=== PATIENT | male | born 1955 | race Caucasian/White ===

== ENCOUNTER 2021-04-18 20:33 | Emergency (ER) | payer MEDICARE, MEDICAID, SELFPAY ==
--- NOTE | ~2021-04-18 | XR_ITS ---
EXAMINATION: XR BILATERAL SHOULDERS: 3 VIEWS EACH CLINICAL INFORMATION: Pain. Evaluate for fracture. COMPARISON: None XR/XR shoulder RT min 2V FINDINGS/IMPRESSION: Right shoulder: No acute fracture or dislocation. Heterotopic ossification present in the expected location of the coracoclavicular ligaments likely related to prior coracoclavicular ligamentous injury. There is also heterotopic ossification anteroinferior and slightly medial to the tip of the acromion, in the expected location of the coracoacromial ligament. Marginal osteophytes present along the acromioclavicular and glenohumeral joints. Heterotopic ossification present along the lateral acromion at the deltoid origin. Degenerative subchondral cyst present within the superior humeral head. Left shoulder: No acute fracture or dislocation. Moderate acromioclavicular marginal osteophytes. Small acromioclavicular marginal osteophytes. Minimal calcific rotator cuff tendinopathy. Soft tissues otherwise unremarkable.
--- NOTE | ~2021-04-18 | XR_ITS ---
EXAMINATION: XR BILATERAL SHOULDERS: 3 VIEWS EACH CLINICAL INFORMATION: Pain. Evaluate for fracture. COMPARISON: None XR/XR shoulder LT min 2V FINDINGS/IMPRESSION: Right shoulder: No acute fracture or dislocation. Heterotopic ossification present in the expected location of the coracoclavicular ligaments likely related to prior coracoclavicular ligamentous injury. There is also heterotopic ossification anteroinferior and slightly medial to the tip of the acromion, in the expected location of the coracoacromial ligament. Marginal osteophytes present along the acromioclavicular and glenohumeral joints. Heterotopic ossification present along the lateral acromion at the deltoid origin. Degenerative subchondral cyst present within the superior humeral head. Left shoulder: No acute fracture or dislocation. Moderate acromioclavicular marginal osteophytes. Small acromioclavicular marginal osteophytes. Minimal calcific rotator cuff tendinopathy. Soft tissues otherwise unremarkable.
--- NOTE | ~2021-04-18 | CT_ITS ---
EXAMINATION: CT HEAD WITHOUT CONTRAST CLINICAL INFORMATION: Fall. COMPARISON: None TECHNIQUE: Contiguous axial imaging was performed from the skull base to vertex without intravenous administration of contrast. Coronal and sagittal reformatted images are performed at CT scanner This CT examination was performed using dose optimization techniques as appropriate, variously including the following: *Automated exposure control *Adjustment of mA and/or kV according to patient size (this includes techniques or standardized protocols for targeted exams where dose is matched to indication/reason for exam; i.e. extremities or head) *Use of iterative reconstruction technique DLP: 838 mGy-cm FINDINGS: There is no evidence of acute intracranial hemorrhage or territorial infarction. No abnormal mass effect or midline shift is seen. Collier to white matter differentiation is well preserved. No extra-axial fluid collections are identified. There is generalized global volume loss. There is moderate prominence of the ventricles and the sulci . There is mild hypodensity of the periventricular white matter due to chronic small vessel ischemic disease. There are vascular calcifications of the internal carotid arteries bilaterally. The osseous structures and soft tissues are normal. The mastoid air cells and visualized portions of the paranasal sinuses are well aerated. CT/CT head/brain wo con IMPRESSION: No acute intracranial pathology.
[2021-04-18 20:46] VITALS: BP 137/85; PULSE 83; O2SAT 97
[2021-04-18 20:47] VITALS: BMI 26.4
[2021-04-18 21:07] VITALS: BP 142/88; PULSE 75; RESP 16; TEMP 36.4; O2SAT 95
--- NOTE | 2021-04-18 23:08 | ED.FALL ---
HPI - Fall General Chief Complaint: Fall Stated Complaint: FALL AND ETOH Time Seen by Provider: 04/18/21 22:57 Source: patient Mode of arrival: EMS Limitations: no limitations History of Present Illness HPI Narrative: 65-year-old male who presents emergency department for evaluation of trip and fall with injury to his head, right hand and left shoulder. Patient states that he was walking home and he stubbed his toe causing and trip. He fell forward and struck his head. He denied any loss of consciousness. He states that he also struck his left shoulder and right hand on the ground. He is currently complaining pain in his left shoulder, the pain is a constant, sharp pain which was worse with movement, the pain is moderate in intensity. The patient denied headache, neck pain, nausea, vomiting, numbness or weakness. He does have an abrasion to the palmar aspect of the right and denies any and pain. The patient states that he did drink alcohol early in the day. He believes that his last tetanus shot was given more than 5 years prior. Related Data Allergies Allergy/AdvReac Type Severity Reaction Status Date / Time No Known Allergies Allergy Verified 04/18/21 23:07 Review of Systems Review of Systems: Yes all other systems are reviewed and are negative [facility] Past Medical History [facility] Narrative: Past medical history: None. Past surgical history: None. Source history: He denies tobacco use. He occasionally drinks alcohol. He states that he was drinking alcohol earlier the day. He denies drug use. Social History Social History Advance Directives: No Advance Directives Information Provided: No Physical Exam Vital Signs: Vital Signs: Last Vital Signs Temp 97.5 F 04/18/21 21:07 Pulse 74 04/19/21 00:26 Resp 16 04/19/21 00:26 BP 138/81 04/19/21 00:26 Pulse Ox 98 04/19/21 00:26 Body Mass Index 26.4 Const: General: cooperative and no acute distress Orientation/consciousness: oriented to person and oriented to place Limitations: no limitations HENMT: Head: Yes normal to inspection, Yes normocephalic and Yes abrasion (Left forehead, no hematoma, no tenderness) Ears: external ears normal General nose exam: Normal external nose present Face and sinus: Yes other (Abrasion to left zygomatic arch, no tenderness) Mouth: Normal oral and palatal mucosa present Throat: Yes posterior oropharynx normal Eyes: General: appearance normal, both eyes and all related structures Pupils: Equal, round and reactive pupils present Neck: Neck: Yes normal visual inspection, Yes no lymphadenopathy, Yes trachea midline and Yes supple Chest: Chest palpation & inspection: normal inspection of the chest and normal palpation of entire chest wall Resp: Effort & Inspection: normal respiratory effort and able to speak in complete sentences Auscultation: clear to auscultation bilaterally Cardio: Rate: regular rate Rhythm: regular rhythm Heart sounds: S1 normal heart sound present, S2 normal heart sound present and no murmurs GI: Inspection: Yes normal to inspection Palpation (GI): Soft to palpation, nontender and no guarding Auscultation: normal bowel sounds : General: Yes no CVA tenderness Back/Spine/Pelvis: Back: no CVA tenderness Skin: General skin exam: no rashes or lesions noted Neuro: General: oriented to person and oriented to place Cranial nerves: Yes CN's II-XII intact bilaterally and Yes Equal, round and reactive pupils present Cognition (Neuro): normal cognition Motor exam (neuro): 5/5 motor strength present throughout Extrem: Other: Tenderness with palpation over the proximal left humerus, pain with passive and active range of motion, neurovascularly intact. Full skin thickness abrasion to right palm over the thenar eminence, no tenderness with palpation of the hand, full range of motion of the fingers, extremities neurovascular intact. Psych: Appearance: grossly normal Speech and movement: Normal speech and movement present Affect: normal affect Attitude: cooperative Thought process: Normal thought process present Thought content: Normal thought content present Course Course Course Narrative: 65-year-old male who presents emergency department for evaluation of injuries from a mechanical fall while he was walking home. Patient did hit his head but had no loss of consciousness, he does have an abrasion to his left forehead with no hematoma or tenderness. Patient has no neck tenderness or neck pain. He is complaining of pain in his left shoulder and does have tenderness with palpation of the proximal humerus. I ordered a CT scan of the head to rule out fracture, bleed in x-ray to the left and right shoulder pain. Patient's abrasions were cleaned and dressed with bacitracin. Patient was given a Tdap immunization. 0046: The patient's CT scan of the brain revealed no skull fracture or bleeding. X-rays of the shoulders bilaterally revealed no acute fractures. The patient was given verbal and printed instructions prior to discharge. The patient was advised to follow-up with her PCP in 2 days and to return to the emergency department if her symptoms get worse or if she develops any new symptoms that are concerning to her. Discharge Plan Discharge Clinical Impression: Fall, Head injury, Contusion of left shoulder, Contusion of right shoulder, Abrasion hand, Abrasion of forehead Patient Disposition: Home, Self-Care Instructions: Head Injury (ED), Contusion in Adults (ED), Abrasion (ED) Additional Instructions: The CT scan of your head revealed no skull fracture/broken bones or bleeding in the brain. The x-rays of your shoulders revealed no fractures/broken bones Apply bacitracin twice a day to the abrasion on your left forehead and right hand. Take ibuprofen 200 mg pills, 3 pills every 6 hours as needed for pain. Take Tylenol (acetaminophen) 500 mg pills, 2 pills every 4 to 6 hours as needed for pain. Follow-up with your doctor in 2 days. Please return to the emergency department if your symptoms get worse or if you develop any symptoms that are concerning to you. Please read the discharge instructions on abrasions, contusions in adults and head injury
[2021-04-19] MEDS: Diphth,Pertus(ACell),Tet Adult 0.5 ML SYRINGE IM (00:18)
[2021-04-19] MEDS: Bacitracin Oint 14 GM TUBE 1 APPL TOPICAL (00:19)
--- NOTE | 2021-04-19 00:25 | PC.NURSE ---
Medicated per NOV. Wounds cleaned, ABX ointment applied, wounds dressed. Pt resting in POC. VSS.
[2021-04-19 00:26] VITALS: BP 138/81; PULSE 74; RESP 16; O2SAT 98
== END 2021-04-19 01:01 | disposition home or self-care (01) ==
PROVIDERS: Emergency Provider Emergency Medicine Emergency Medical Services
DX: S09.90XA Unspecified injury of head, initial encounter (principal); S40.012A Contusion of left shoulder, initial encounter; S40.011A Contusion of right shoulder, initial encounter; S60.511A Abrasion of right hand, initial encounter; S00.81XA Abrasion of other part of head, initial encounter; W01.198A Fall on same level from slipping, tripping and stumbling with subsequent striking against other object, initial encounter; Y93.01 Activity, walking, marching and hiking; Y92.480 Sidewalk as the place of occurrence of the external cause; Y99.9 Unspecified external cause status
CPT/HCPCS: 70450; 73030; 90471; 90715; 99284

== ENCOUNTER 2021-06-14 18:54 | Emergency (ER) | payer OTHER, MEDICARE, MEDICAID, SELFPAY ==
[2021-06-14] VITALS (8 sets, daily range): BP systolic 98–196; BP diastolic 61–113; PULSE 65–77; RESP 14–19; TEMP 36.4; O2SAT 94–100; BMI 33.9
--- NOTE | ~2021-06-14 | CT_ITS ---
EXAMINATION: CT HEAD WITHOUT CONTRAST CLINICAL INFORMATION: Status post fall. COMPARISON: 04/18/2021 TECHNIQUE: Contiguous axial imaging was performed from the skull base to vertex without intravenous administration of contrast. This CT examination was performed using dose optimization techniques as appropriate, variously including the following: *Automated exposure control *Adjustment of mA and/or kV according to patient size (this includes techniques or standardized protocols for targeted exams where dose is matched to indication/reason for exam; i.e. extremities or head) *Use of iterative reconstruction technique DLP: 927 mGy-cm FINDINGS: This is a complex markedly abnormal study. There is a mildly displaced nondepressed frontal bone fracture that extends from the right superolateral orbital frontal bone superiorly into the left to involve the left parietal bone. There is overlying left scalp soft tissue swelling. There is extensive subarachnoid hemorrhage seen throughout the right hemisphere with involvement left frontal involvement as well. In addition, there is extensive high density extra-axial hemorrhage. There is a right holohemispheric extra-axial hemorrhage measuring up to 7 mm in width on coronal images. This has mixed density overlying the right temporal and parietal cortices suggesting blood in varying degrees of clotting. There is extension to involve the anterior and posterior falx to the right of midline as well as along the right tentorium, up to 8mm in width. There is extension across the midline to overlie the left frontal lobe. Small focus of intraventricular subependymal hemorrhage seen adjacent the left caudate image 51/92. Similarly, there may be intraventricular hemorrhage posteriorly in the occipital horn of the left lateral ventricle. There is right to left midline shift, approximately 6 mm. There is diffuse sulcal effacement throughout the right hemisphere with mass effect and effacement of the right lateral ventricle. Left ventricular system is similar in appearance to the prior study 04/18/2021. CT/CT head/brain wo con IMPRESSION: Complex markedly abnormal study. There is a mildly displaced nondepressed frontal bone fracture that extends from the right supraorbital region to the left frontoparietal vertex with overlying scalp soft tissue swelling. This is not a common location for a fracture, suggesting high energy impact/trauma. Extensive multicompartment hemorrhage as described above, including extensive right greater than left subarachnoid hemorrhage in the lateral hemispheric right subdural hematoma, possibly with an epidural component related to the fracture. This results in extensive sulcal effacement throughout the right hemisphere, 6 mm right to left midline shift, and effacement of the right lateral ventricle. This critical result was discussed with Baudilio Singletary MD MD by telephone at 06/14/2021 7:46 PM and it was ascertained that the content and urgency of the report was understood at the time of direct communication.
--- NOTE | ~2021-06-14 | XR_ITS ---
EXAMINATION: XR CHEST CLINICAL INFORMATION: Altered mental status COMPARISON: None TECHNIQUE: Frontal view of the chest was obtained. FINDINGS: The ET tube is 4.2 cm above the greg. Left basilar atelectasis or infiltrate. Mild change at the right base. No evidence for failure. No significant effusion. No pneumothorax. XR/XR chest 1V IMPRESSION: ET tube in good position 4.2 cm above greg. Left basilar atelectasis or infiltrate. Mild change at the right base.
--- NOTE | 2021-06-14 19:08 | ED_ITS ---
HPI - Altered Mental Status General Chief Complaint: Overdose Stated Complaint: od Time Seen by Provider: 06/14/21 18:59 Source: EMS Mode of arrival: EMS History of Present Illness HPI narrative: patient With no significant past medical history was brought by EMS from the bar after he fell down from the Bar stool. According to douglas patient, pt witnesses was drinking just water all day pupils were pinpoint patient was given 2 mg of Narcan IM and then 1 mg IV patient responded for few minutes again became obtunded no signs of IVDA no drugs were found near him patient pupils were pinpoint when EMS reached POC was 120 on arrival patient was obtunded minimal response to painful stimuli gag reflex absent GCS of 7, BP 158/95 pulse rate 73 saturating 94% on 4 L Related Data Allergies Allergy/AdvReac Type Severity Reaction Status Date / Time No Known Allergies Allergy Verified 04/18/21 23:07 Review of Systems Review of Systems: Yes Unobtainable due to mental status PMFSH Social History Social History Advance Directives: No Advance Directives Information Provided: No Physical Exam Vital Signs: Vital Signs: Last Vital Signs Temp 97.5 F 06/14/21 19:04 Pulse 68 06/14/21 21:31 Resp 14 06/14/21 21:31 BP 98/61 06/14/21 21:31 Pulse Ox 99 06/14/21 21:31 Body Mass Index 33.9 Const: General: well developed, intoxicated appearing (etoh +) and patient obtunded Orientation/consciousness: patient obtunded HENMT: Head: Yes normal to inspection and Yes No palpable skull fracture pres ent Ears: TM's normal bilaterally and EAC's normal Face and sinus: Yes normal facial exam Mouth: Normal oral and palatal mucosa present and other (Absent gag reflux) Teeth and gingiva: dentures Eyes: General: appearance normal, both eyes and all related structures Pupils: Equal, round and reactive pupils present and Pupil size comments bilaterally 3 Neck: Neck: Yes normal visual inspection Chest: Chest palpation & inspection: normal inspection of the chest Resp: Effort & Inspection: decreased respiratory effort Auscultation: clear to auscultation bilaterally Cardio: Palpation: normal PMI Rate: regular rate Rhythm: regular rhythm Heart sounds: S1 normal heart sound present and S2 normal heart sound present Peripheral pulses: Peripheral pulses 2+ throughout GI: Inspection: Yes normal to inspection Palpation (GI): Soft to palpation and nontender Auscultation: normal bowel sounds Skin: General skin exam: no rashes or lesions noted Neuro: General: patient obtunded Cranial nerves: Yes Equal, round and reactive pupils present Extrem: General: Yes normal to inspection and Yes no pedal edema Course Reevaluation(s) Reevaluation #1: Patient GCS of 7 intubated for airway protection CT scan showed right-sided diffuse subarachnoid bleed, subdural bleed with midline shift of 6 mm blood pressure increased to 196/112 was given 20 mg labetalol repeat blood pressure 154/89 Time: 19:33 Reevaluation #2: Case discussed with at [facility] except patient has trauma level 1 transfer Time: 19:53 Reevaluation #3: Patient had frontal bone fracture also per radiologist etiology not very clear does not look like trauma from falling from the chair. Patient INR 1.1 PT 13.3 COVID-19 is negative Time: 20:03 MDM - Altered Mental Status MDM Narrative Medical decision making narrative: Patient status post fall from the bar stool comes with GCS of 7 CT scan of the head showed mildly displaced not this depressed frontal bone fracture extends from the right supraorbital to left frontoparietal area with multi compartment hemorrhage including extensive right greater than left subarachnoid hemorrhage and right subdural hemorrhage with midline shift of 6 mm will transfer patient to [facility] trauma. Patient is status post intubation blood pressure noticed to increase after arrival received 20 mg of labetalol on propofol drip now Lab Data Attestation: I reviewed the patient's lab results. Result diagrams: 06/14/21 19:21 06/14/21 19:21 Labs: Lab Results 06/14/21 06/14/21 06/14/21 Range/Units 19:01 19:20 19:21 WBC 7.2 (4.8-10.8) X10*3/uL RBC 4.69 (4.60-5.80) X10*6/uL Hgb 15.8 (14.0-18.0) g/dl Hct 46.4 (42-52) % MCV 98.9 H (80-98) fL MCH 33.7 H (27.0-33.0) pg MCHC 34.1 (31.0-36.0) g/dl RDW 13.1 (11.0-16.0) % Plt Count 147 L (160-400) X10*3/uL MPV 9.9 (9.4-12.4) fL Immature Gran % (Auto) 0.3 (0.0-0.4) % Neut % (Auto) 51.5 (45-73) % Lymph % (Auto) 33.8 (20-40) % Callaway % (Auto) 12.4 H (2-11) % Eos % (Auto) 1.2 (0-4) % Baso % (Auto) 0.8 (0-2) % Lymph # (Auto) 2.5 (1.2-4.9) X10*3/uL Callaway # (Auto) 0.9 (0.1-1.2) X10*3/uL Eos # (Auto) 0.1 (0.0-0.4) X10*3/uL Baso # (Auto) 0.1 (0.0-0.2) X10*3/uL Abs Immat Gran (auto) 0.02 (0.00-0.03) X10*3/uL Absolute Neuts (auto) 3.7 (2.0-8.3) X10*3/uL Absolute Nucleated RBC 0.000 (0.0-0.012) X10*3/uL Nucleated RBC % (auto) 0.0 (0.0-0.2) /100WBC Whole Blood PT (11.1-13.5) sec Whole Blood INR (0.9-1.1) Sodium (135-145) mmol/L Potassium (3.3-5.1) mmol/L Chloride (96-108) mmol/L Carbon Dioxide (22-29) mmol/L Anion Gap (12-20) BUN (9-16) mg/dL Creatinine (0.5-1.4) mg/dL Estim Creat Clear Calc Estimated GFR POC Glucose 120 H (60-115) mg/dL Random Glucose (60-115) mg/dL Calcium (8.4-10.2) mg/dL Magnesium (1.6-2.6) mg/dL Total Bilirubin (0.0-1.0) mg/dL Direct Bilirubin (0.0-0.5) mg/dL AST (5-37) U/L ALT (0-40) U/L Alkaline Phosphatase (39-117) U/L Troponin I High Sens (<3.5-35.0) ng/L Total Protein (6.5-8.0) g/dL Albumin (3.5-5.0) g/dL Ethyl Alcohol mg/dL COVID-19 ([facility]AYNE) Negative (Negative) COVID-19 Clin Com See Note 06/14/21 06/14/21 06/14/21 Range/Units 19:21 19:21 19:23 WBC (4.8-10.8) X10*3/uL RBC (4.60-5.80) X10*6/uL Hgb (14.0-18.0) g/dl Hct (42-52) % MCV (80-98) fL MCH (27.0-33.0) pg MCHC (31.0-36.0) g/dl RDW (11.0-16.0) % Plt Count (160-400) X10*3/uL MPV (9.4-12.4) fL Immature Gran % (Auto) (0.0-0.4) % Neut % (Auto) (45-73) % Lymph % (Auto) (20-40) % Callaway % (Auto) (2-11) % Eos % (Auto) (0-4) % Baso % (Auto) (0-2) % Lymph # (Auto) (1.2-4.9) X10*3/uL Callaway # (Auto) (0.1-1.2) X10*3/uL Eos # (Auto) (0.0-0.4) X10*3/uL Baso # (Auto) (0.0-0.2) X10*3/uL Abs Immat Gran (auto) (0.00-0.03) X10*3/uL Absolute Neuts (auto) (2.0-8.3) X10*3/uL Absolute Nucleated RBC (0.0-0.012) X10*3/uL Nucleated RBC % (auto) (0.0-0.2) /100WBC Whole Blood PT (11.1-13.5) sec Whole Blood INR (0.9-1.1) Sodium 142 (135-145) mmol/L Potassium 3.9 (3.3-5.1) mmol/L Chloride 105 (96-108) mmol/L Carbon Dioxide 26 (22-29) mmol/L Anion Gap 15 (12-20) BUN 5 L (9-16) mg/dL Creatinine 0.91 (0.5-1.4) mg/dL Estim Creat Clear Calc 106.6 Estimated GFR > 60 POC Glucose (60-115) mg/dL Random Glucose 116 H (60-115) mg/dL Calcium 8.6 (8.4-10.2) mg/dL Magnesium 2.1 (1.6-2.6) mg/dL Total Bilirubin 0.8 (0.0-1.0) mg/dL Direct Bilirubin 0.3 (0.0-0.5) mg/dL AST 49 H (5-37) U/L ALT 26 (0-40) U/L Alkaline Phosphatase 98 (39-117) U/L Troponin I High Sens < 3.5 (<3.5-35.0) ng/L Total Protein 8.4 H (6.5-8.0) g/dL Albumin 4.2 (3.5-5.0) g/dL Ethyl Alcohol 393 H* mg/dL COVID-19 (SHAYNE) (Negative) COVID-19 Clin Com 06/14/21 Range/Units 20:13 WBC (4.8-10.8) X10*3/uL RBC (4.60-5.80) X10*6/uL Hgb (14.0-18.0) g/dl Hct (42-52) % MCV (80-98) fL MCH (27.0-33.0) pg MCHC (31.0-36.0) g/dl RDW (11.0-16.0) % Plt Count (160-400) X10*3/uL MPV (9.4-12.4) fL Immature Gran % (Auto) (0.0-0.4) % Neut % (Auto) (45-73) % Lymph % (Auto) (20-40) % Callaway % (Auto) (2-11) % Eos % (Auto) (0-4) % Baso % (Auto) (0-2) % Lymph # (Auto) (1.2-4.9) X10*3/uL Callaway # (Auto) (0.1-1.2) X10*3/uL Eos # (Auto) (0.0-0.4) X10*3/uL Baso # (Auto) (0.0-0.2) X10*3/uL Abs Immat Gran (auto) (0.00-0.03) X10*3/uL Absolute Neuts (auto) (2.0-8.3) X10*3/uL Absolute Nucleated RBC (0.0-0.012) X10*3/uL Nucleated RBC % (auto) (0.0-0.2) /100WBC Whole Blood PT 13.3 (11.1-13.5) sec Whole Blood INR 1.1 (0.9-1.1) Sodium (135-145) mmol/L Potassium (3.3-5.1) mmol/L Chloride (96-108) mmol/L Carbon Dioxide (22-29) mmol/L Anion Gap (12-20) BUN (9-16) mg/dL Creatinine (0.5-1.4) mg/dL Estim Creat Clear Calc Estimated GFR POC Glucose (60-115) mg/dL Random Glucose (60-115) mg/dL Calcium (8.4-10.2) mg/dL Magnesium (1.6-2.6) mg/dL Total Bilirubin (0.0-1.0) mg/dL Direct Bilirubin (0.0-0.5) mg/dL AST (5-37) U/L ALT (0-40) U/L Alkaline Phosphatase (39-117) U/L Troponin I High Sens (<3.5-35.0) ng/L Total Protein (6.5-8.0) g/dL Albumin (3.5-5.0) g/dL Ethyl Alcohol mg/dL COVID-19 ([facility]AYNE) (Negative) COVID-19 Clin Com Imaging Data CT scan - head: Radiologist's impression: [address] [address] [address] Scan Report Signed Patient: Lamonte Bravo MR#: [id number] : 1955 Acct:[id number] Age/Sex: 65 / M ADM Date: 06/14/21 Loc: HO.ED Attending Dr: Ordering Physician: Baudilio Singletary MD Date of Service: 06/14/21 Procedure(s): CT head/brain wo con Accession Number(s): [id number] cc: Baudilio Singletary MD~ EXAMINATION: CT HEAD WITHOUT CONTRAST CLINICAL INFORMATION: Status post fall. ? COMPARISON: 04/18/2021 TECHNIQUE: Contiguous axial imaging was performed from the skull base to vertex without intravenous administration of contrast. This CT examination was performed using dose optimization techniques as appropriate, variously including the following: *Automated exposure control *Adjustment of mA and/or kV according to patient size (this includes techniques or standardized protocols for targeted exams where dose is matched to indication/reason for exam; i.e. extremities or head) *Use of iterative reconstruction technique DLP: 927 mGy-cm FINDINGS: This is a complex markedly abnormal study. There is a mildly displaced nondepressed frontal bone fracture that extends from the right superolateral orbital frontal bone superiorly into the left to involve the left parietal bone. There is overlying left scalp soft tissue swelling. There is extensive subarachnoid hemorrhage seen throughout the right hemisphere with involvement left frontal involvement as well. In addition, there is extensive high density extra-axial hemorrhage. There is a right holohemispheric extra-axial hemorrhage measuring up to 7 mm in width on coronal images. This has mixed density overlying the right temporal and parietal cortices suggesting blood in varying degrees of clotting. There is extension to involve the anterior and posterior falx to the right of midline as well as along the right tentorium, up to 8mm in width. There is extension across the midline to overlie the left frontal lobe. Small focus of intraventricular subependymal hemorrhage seen adjacent the left caudate image 51/92. Similarly, there may be intraventricular hemorrhage posteriorly in the occipital horn of the left lateral ventricle. There is right to left midline shift, approximately 6 mm. There is diffuse sulcal effacement throughout the right hemisphere with mass effect and effacement of the right lateral ventricle. Left ventricular system is similar in appearance to the prior study 04/18/2021. ? CT/CT head/brain wo con IMPRESSION: Complex markedly abnormal study. There is a mildly displaced nondepressed frontal bone fracture that extends from the right supraorbital region to the left frontoparietal vertex with overlying scalp soft tissue swelling. This is not a common location for a fracture, suggesting high energy impact/trauma. ? Extensive multicompartment hemorrhage as described above, including extensive right greater than left subarachnoid hemorrhage in the lateral hemispheric right subdural hematoma, possibly with an epidural component related to the fracture. This results in extensive sulcal effacement throughout the right hemisphere, 6 mm right to left midline shift, and effacement of the right lateral ventricle. ? This critical result was discussed with Baudilio Singletary MD MD by telephone at 06/14/2021 7:46 PM and it was ascertained that the content and urgency of the report was understood at the time of direct communication. ? ? Dictated By: DWIGHT NIELSON MD Signed By: <Electronically signed by DWIGHT NIELSON MD in OV> 06/14/212002 DD/ 99 TD/TT:? Field Mechanic: TF Procedures Intubation Time out performed: Yes sedative: Etomidate Mg Given: 20 paralytic: Rocuronium Mg Given: 50 Laryngoscope: fiber optic video scope ET Tube Size: 7.5 ET Tube Uncuffed: No Tube Secured Depth (cm): 23 Tube Secured Location: lips Tube Placement Confirmation: visualized tube passing through cords and equal breath sounds bilaterally Patient Tolerated Procedure: well Intubation Complications: none Critical Care Time Critical Care Time Critical Care Time: Yes Total Critical Care Time: 45 Attestation: I spent 45 minutes of critical care, with interventions, assessments, speaking to patient, consultants, and family. Discharge Plan Discharge Clinical Impression: Acute head trauma, Subarachnoid hemorrhage, Subdural hemorrhage, Closed fracture of frontal bone, Alcohol intoxication Patient Disposition: er Acute Care Hospital Transfer Details: Transfer to [facility] trauma Dr. Penaloza Interventions: Acute Care Transfer Worksheet (ED) Last Done: 06/14/21 21:58 Discharge Date/Time: 06/14/21 21:43
[2021-06-14 19:10] LABS: Glucose, Whole Blood 120 mg/dL (60-115)
[2021-06-14] MEDS: Etomidate 20 MG/10 ML VIAL IVPUSH (19:29)
[2021-06-14] MEDS: Rocuronium Bromide 50 MG/5 ML VIAL IVPUSH (19:29)
[2021-06-14 19:33] LABS: MANUAL DIFF FLAG NO
[2021-06-14 19:37] LABS: Basophils Absolute Auto 0.1 X10*3/uL (0.0-0.2); Basophils Percent Auto 0.8 % (0-2); Eosinophils Absolute Auto 0.1 X10*3/uL (0.0-0.4); Eosinophils Percent Auto 1.2 % (0-4); Hematocrit 46.4 % (42-52); Hemoglobin 15.8 g/dl (14.0-18.0); Imm Gran Abs Auto 0.02 X10*3/uL (0.00-0.03); Imm Gran Pct Auto 0.3 % (0.0-0.4); Lymphocytes Absolute Auto 2.5 X10*3/uL (1.2-4.9); Lymphocytes Percent Auto 33.8 % (20-40); Mean Corpuscular HGB Conc 34.1 g/dl (31.0-36.0); Mean Corpuscular Hemoglobin 33.7 pg (27.0-33.0); Mean Corpuscular Volume 98.9 fL (80-98); Mean Platelet Volume 9.9 fL (9.4-12.4); Monocytes Absolute Auto 0.9 X10*3/uL (0.1-1.2); Monocytes Percent Auto 12.4 % (2-11); Neutrophils Absolute Auto 3.7 X10*3/uL (2.0-8.3); Neutrophils Percent Auto 51.5 % (45-73); Platelet Count 147 X10*3/uL (160-400); Red Blood Count 4.69 X10*6/uL (4.60-5.80); Red Cell Distribution Width 13.1 % (11.0-16.0); White Blood Count 7.2 X10*3/uL (4.8-10.8)
--- NOTE | 2021-06-14 19:42 | PC.NURSE ---
propofol vial size not same as order, concentration remains the same. propofol started at 19:40 at 20mcg/kg/min per NOV protocol. verified by both this nurse and Nehal Espinal RN
[2021-06-14] MEDS: Naloxone HCl 0.4 MG/ML VIAL IVPUSH (19:44)
[2021-06-14] MEDS: 0.9 % Sodium Chloride 1,000 ML 999 ML IVCONT (19:45)
[2021-06-14] MEDS: Labetalol HCL 100 MG/20 ML VIAL 20 MG IVPUSH ×2 (19:46→20:20)
[2021-06-14 19:49] LABS: Ethanol 393 mg/dL
[2021-06-14 19:51] LABS: Alanine Aminotransferase 26 U/L (0-40); Albumin Level 4.2 g/dL (3.5-5.0); Alkaline Phosphatase 98 U/L (39-117); Anion Gap 15 (12-20); Aspartate Amino Transferase 49 U/L (5-37); Bilirubin Direct 0.3 mg/dL (0.0-0.5); Bilirubin Total 0.8 mg/dL (0.0-1.0); Blood Urea Nitrogen 5 mg/dL (9-16); Calcium 8.6 mg/dL (8.4-10.2); Carbon Dioxide 26 mmol/L (22-29); Chloride 105 mmol/L (96-108); Creatinine Clr Calc Pharmacy 106.6; Estimated Glomerular Filt Rate > 60; Glucose Random 116 mg/dL (60-115); Magnesium 2.1 mg/dL (1.6-2.6); Potassium 3.9 mmol/L (3.3-5.1); Sodium 142 mmol/L (135-145); Total Protein 8.4 g/dL (6.5-8.0)
[2021-06-14 19:52] LABS: COVID-19 Test Negative (Negative); IDNOW Serial# 08D9AD1C
--- NOTE | 2021-06-14 19:53 | PC.NURSE ---
19:30 HR103 sinus tach, 7.5 ET tube placed 23 at the lip, positive color change, breath sounds equal bilaterally 19:32 HR 92 NSR, etc02 36, AC/VC, RR 14, TV 500, fi02 100% 19:34 fi02 decreased to 50%, spo02 100%
[2021-06-14 19:54] LABS: Troponin-I High Sensitivity < 3.5 ng/L (<3.5-35.0)
--- NOTE | 2021-06-14 20:01 | PC.NURSE ---
pt accepted by [facility] trauma services, awaiting transport
--- NOTE | 2021-06-14 20:10 | PC.NURSE ---
requesting stat INR, health information technologist Yee at bedside obtaining INR
--- NOTE | 2021-06-14 20:11 | PC.NURSE ---
belongings list done by this nurse and plasma center technicianbrooklynn Fraire pt has $302 thomason, wallet, full upper and full lower dentures, clothes, shoes, cell phone and keys
[2021-06-14] MEDS: Midazolam HCl/PF 2 MG/2 ML VIAL IVPUSH (20:40)
--- NOTE | 2021-06-14 20:52 | PC.NURSE ---
20:20 BP 174/113, HR 70, 02 sat 99% fio2 50, RR 14 pt coughing against sedation, propofol increased to 30 mcg/kg/min per protocol 20:25 verbal order from MD for 20mg Labetalol IVP for elevated BP Labetalol given 20:28 BP 160/96 20:30 pt still coughing against sedation, propofol increased to 40mcg/kg/min 20:40 verbal order by MD for 2mg Versed IVP Versed given RT and paramedics at bedside preparing for transport. 20:55 Paramedics on phone with supervisor cellars regarding transporting pt on ventilation
--- NOTE | 2021-06-14 21:08 | PC.NURSE ---
new bottle of propofol hung by this nurse
--- NOTE | 2021-06-14 21:12 | PC.NURSE ---
pt still in room 5 per paramedics, their vent is brand new and not working paramedics and their softlines supervisor at bedside attempting to fix their vent
--- NOTE | 2021-06-14 21:34 | PC.NURSE ---
BP 98/61 provider notified per provider decrease propofol to 30mcg/kg/min
--- NOTE | 2021-06-14 21:42 | PC.NURSE ---
21:43 pt leaving facility with [facility]
--- NOTE | 2021-06-14 21:57 | PC.NURSE ---
nurse to nurse report given to Kain [place] [facility] [place]
--- NOTE | 2021-06-15 | ECG_ITS ---
Test Reason : OVERDOSE Blood Pressure : / mmHG Vent. Rate : 073 BPM Atrial Rate : 073 BPM P-R Int : 198 ms QRS Dur : 090 ms QT Int : 432 ms P-R-T Axes : 066 -26 018 degrees QTc Int : 475 ms Normal sinus rhythm Normal ECG When compared with ECG of 22-JUL-2002 12:03, Non-specific change in ST segment in Anterior leads QT has lengthened Referred By: Baudilio Singletary Electronically Signed By:DENIS MARTINEZ
[2021-06-15 09:51] LABS: Prothrombin Time Whole Bld POC 13.3 sec (11.1-13.5); ~PT, ~INR - Anti Coag Clinic 1.1 (0.9-1.1)
== END 2021-06-14 21:43 | disposition short-term general hospital (02) ==
PROVIDERS: Emergency Provider Internal Medicine
DX: S06.6X1A Traumatic subarachnoid hemorrhage with loss of consciousness of 30 minutes or less, initial encounter (principal); S06.5X1A Traumatic subdural hemorrhage with loss of consciousness of 30 minutes or less, initial encounter; S02.0XXA Fracture of vault of skull, initial encounter for closed fracture; G44.309 Post-traumatic headache, unspecified, not intractable; F10.229 Alcohol dependence with intoxication, unspecified; Y90.8 Blood alcohol level of 240 mg/100 ml or more; W07.XXXA Fall from chair, initial encounter; Y93.9 Activity, unspecified; Y92.9 Unspecified place or not applicable; Y99.9 Unspecified external cause status; Z20.822 Contact with and (suspected) exposure to COVID-19
CPT/HCPCS: 36415; 70450; 71045; 80048; 80076; 82077; 82947; 83735; 84484; 85025; 85610; 87635; 93005; 94002; 94003; 96361; 96365; 96366; 96375; 96376; 99285; 99291; J2250